=== PATIENT | male | born 1995 | race African-American/Black ===

== ENCOUNTER 2019-04-26 05:30 | Emergency (ER) | payer BC ==
[~2019-04-26] VITALS: Ht 172.7 cm; Wt 74.8 kg
[~2019-04-26 05:30] MED LIST: NKM
--- NOTE | 2019-04-26 05:41 | Emergency Room Report ---
History of Present Illness General Chief Complaint: Chest Pain Present Illness [facility] 24-year-old male presents with chest ache prior to arrival, patient states he smoked some marijuana, he felt lightheaded in bed, no nausea no vomiting, no shortness of breath, he states now his left shoulder is achy, currently has no chest pain, he describes the achiness in the muscles as mild, no aggravating or alleviating factors, occurred prior to arrival after smoking marijuana. Allergies: Coded Allergies: No Known Allergies (Unverified , 04/26/19) Patient History Past Medical History: see triage record Social History: Reports: drug use - Marijuana Review of Systems Constitutional: Denies: chills, fever Eye: Denies: blurred vision, double vision ENT: Denies: throat pain, nasal discharge Respiratory: Denies: cough, shortness of breath Cardiovascular: Reports: chest pain; Denies: palpitations Gastrointestinal: Denies: abdominal pain, diarrhea, nausea, vomiting Genitourinary: Denies: dysuria, pain Musculoskeletal: Reports: muscle pain; Denies: back pain Skin: Denies: rash, lesions Neurological: Denies: headache, focal weakness Hematologic/Lymphatic: Denies: easy bleeding, easy bruising All Other Systems: negative except mentioned in HPI Physical Exam Sp02 EP Interpretation: reviewed, normal General Appearance: well appearing, no apparent distress, alert Head: normocephalic, atraumatic Eyes: bilateral eye PERRL, bilateral eye EOMI ENT: uvula midline, moist mucus membranes Neck: supple, thyroid normal, supple/symm/no masses Respiratory: lungs clear, no respiratory distress, no retraction, no accessory muscle use Cardiovascular #1: normal peripheral pulses, regular rate, rhythm, no edema, no gallop, no murmur Gastrointestinal: non tender, soft, no guarding, no rebound Musculoskeletal: normal inspection Neurologic: alert, oriented x3 Psychiatric: mood/affect normal Skin: no rash, warm/dry Medical Decision Making Diagnostic Impression: Primary Impression: Atypical chest pain Additional Impressions: Side effect of drug Asthma attack ER Course No evidence of ACS, pulmonary embolism, pneumothorax, pneumonia. Historically not abrupt in onset, tearing or ripping, pulses symmetric, no evidence of aortic dissection. Patient with atypical chest pain after smoking marijuana, and lightheadedness, patient most likely had an adverse drug reaction, patient with atypical chest pain, has since resolved, chest x-ray negative, EKG negative, low suspicion for emergent pathology, disposition home with return precautions, return precautions discussed EKG Diagnostic Results EKG Time: 05:44 EP Interpretation: sinus bradycardia, rate 59, QTc 376, no acute ST elevations , normal axis Rate: bradycardiac Rhythm: other - Sinus bradycardia ST Segments: no acute changes Chest X-Ray Diagnostic Results Chest X-Ray Diagnostic Results : Chest X-Ray Ordered: Yes # of Views/Limited/Complete: 1 View Indication: Chest Pain EP Interpretation: Yes Interpretation: no acute cardiopulmonary disease Impression: No acute disease Electronically Signed by: Pedro Pablo Wright MD Disposition: HOME, SELF-CARE Condition: Improved Scripts Naproxen* (NAPROSYN*) 250 Mg Tablet 250 MG ORAL BID PRN for For Pain, #20 TAB 0 Refills Prov: Pedro Pablo Wright MD 04/26/19 Referrals: [facility] Patient Instructions: Asthma Attack Prevention, Asthma, Adult, [id number], Nonspecific Chest Pain Additional Instructions: The patient was provided with discharge instructions, notified to follow-up with a primary care doctor and or specialist in the next 24-48 hours, and to return to the ED if they have worsening of their symptoms. Please note that this report is being documented using Blackberry technology. This can lead to erroneous entry secondary to incorrect interpretation by the dictating instrument. Pedro Pablo Wright MD Apr 26, 2019 05:41
[2019-04-26] MEDS ORDERED: NAPROXEN250 MG ORAL (05:44)
[2019-04-26] MEDS ORDERED: Ketorolac 30mg Inj IV ONE (05:45)
[2019-04-26] MEDS ORDERED: Ketorolac 60mg Inj IM ONE (05:45)
[2019-04-26] MEDS ORDERED: Acetaminophen 500mg (ES) tab ORAL ONE (05:45)
[2019-04-26 05:49] VITALS: BP 121/77
--- NOTE | 2019-04-26 05:53 | NUR ---
ED Nurse Note: Patient walked in to ER c/o CP. Stated that smoked marijuana. AAO x4, VSS at this time, skin is warm to touch.
[2019-04-26 06:12] VITALS: BP 121/77
--- NOTE | 2019-04-26 06:12 | NUR ---
ED Nurse Note: Pt cleared by health care Provider for discharge. DC instructions/prescription was given and explained to pt and verbalized understanding of teachings. All medical deviecs such as ID band removed. Pt is AAO x4, ambulatory and left with all personal belongings.
--- NOTE | 2019-04-26 10:12 | Diagnostic Imaging Report ---
Indication: Chest pain Comparison: None A single view chest radiograph was obtained. Findings: Cardiomediastinal appearance is within normal limits for age. The lungs are clear. Pulmonary vascularity is appropriate. The diaphragmatic contour is smooth and costophrenic angles are sharp. No pleural effusions are identified. The bones are unremarkable. Impression: No acute findings
== END 2019-04-26 06:13 | disposition home or self-care (01) ==
LOC: EMR 05:45
DX: R07.89 Other chest pain (principal); T40.7X5A Adverse effect of cannabis (derivatives), initial encounter; J45.901 Unspecified asthma with (acute) exacerbation; Y92.9 Unspecified place or not applicable
CPT/HCPCS: 71045; 93005; 96372; 99283

== ENCOUNTER 2019-10-25 01:56 | Emergency (ER) | payer BC ==
[~2019-10-25] VITALS: Ht 170.2 cm; Wt 59.0 kg
[~2019-10-25 01:56] MED LIST changes: +NAPROXEN250 MG ORAL
[2019-10-25 02:15] VITALS: BP 119/82
--- NOTE | 2019-10-25 02:15 | NUR ---
ED Nurse Note: Recieved pt from home, here with c/o mnid chest pain x 3 days at 8/10, denies injury or any cardiac history, denies sob or labored breathing, pt immediately assisted to gowning and ekg done, pt also placed on cardiac monitoring, will continue to closely monitor and resume care as ordered.
--- NOTE | 2019-10-25 02:18 | Emergency Room Report ---
History of Present Illness General Chief Complaint: Chest Pain Source: Patient Present Illness HPI Patient presents with right-sided chest pain. Pleuritic and positional. No fevers or chills. He rates the pain 8/10. It is sharp and aching. It radiates around the side of his chest. He has not taken any medication. No cough. Tonight he started to feel dizzy and had palpitations. The pain seemed to get better during that time. Risk factors for cardiac disease: Smoking. No sore throat, nausea, vomiting, diarrhea, dysuria, abdominal pain, shortness of breath, joint pain, rashes, anxiety, visual changes, headache. Allergies: Coded Allergies: No Known Allergies (Unverified , 04/26/19) Patient History Past Medical History: see triage record Social History: Reports: smoking; Denies: alcohol use, drug use Reviewed Nursing Documentation: PMH: Agreed; PSxH: Agreed Nursing Documentation-PMH Hx Asthma: Yes Review of Systems All Other Systems: negative except mentioned in HPI Physical Exam Vital Signs Date Time Temp Pulse Resp B/P (MAP) Pulse Ox O2 Delivery O2 Flow Rate FiO2 10/25/19 02:03 97.9 81 20 119/82 (94) 98 Room Air Sp02 EP Interpretation: reviewed, normal General Appearance: well appearing, no apparent distress, GCS 15 Head: normocephalic Eyes: bilateral eye normal inspection ENT: moist mucus membranes Neck: supple Respiratory: lungs clear, normal breath sounds, other - Chest wall tenderness which re-creates pain. Cardiovascular #1: regular rate, rhythm, no edema Cardiovascular #2: 2+ radial (R) Gastrointestinal: normal inspection, normal bowel sounds, non tender, no mass, non-distended, scaphoid Musculoskeletal: back normal, normal range of motion, no calf tenderness, gait/ station normal Neurologic: alert, oriented x3, grossly normal Psychiatric: mood/affect normal Skin: no rash, warm/dry Medical Decision Making Diagnostic Impression: Primary Impression: Chest wall pain Additional Impression: Hyperventilation ER Course Patient presents with pleuritic right-sided chest pain and an episode of dizziness tonight. Differential includes pericarditis, pleurisy, pneumothorax, chest wall pain, pulmonary embolus, costochondritis amongst others. Cardiac risk factors are quite low. Evaluation with EKG and chest x-ray. The patient is not febrile and other labs are not indicated at this time. Patient was treated with Toradol and aspirin. EKG with J-point elevation. Chest x-ray normal. Patient improved with treatment. Discussed most likely etiology of chest pain. Discussed the need for follow-up. Patient stable for outpatient observation and treatment. EKG Diagnostic Results Rate: normal Rhythm: NSR ST Segments: no acute changes - J-point elevation Rhythm Strip Diag. Results EP Interpretation: yes Rhythm: NSR, no PVC's, no ectopy Chest X-Ray Diagnostic Results Chest X-Ray Diagnostic Results : Chest X-Ray Ordered: Yes # of Views/Limited/Complete: 1 View Indication: Chest Pain EP Interpretation: Yes Interpretation: no consolidation, no effusion, no pneumothorax Impression: No acute disease Electronically Signed by: Electronically signed by Isidro Wilkes MD Last Vital Signs Date Time Temp Pulse Resp B/P (MAP) Pulse Ox O2 Delivery O2 Flow Rate FiO2 10/25/19 05:00 98.4 71 16 122/78 100 Room Air Status: improved Disposition: HOME, SELF-CARE Condition: Improved Scripts Hydrocodone Bit/Acetaminophen 5-325* (NORCO 5-325*) 1 Each Tablet 1 TAB ORAL Q6H PRN for For Pain, #8 TAB 0 Refills Prov: Isidro Wilkes MD 10/25/19 Ibuprofen* (MOTRIN*) 600 Mg Tablet 600 MG ORAL Q6H PRN for For Pain, #16 TAB Prov: Isidro Wilkes MD 10/25/19 Isidro Wilkes MD Oct 25, 2019 02:18
[2019-10-25] MEDS ORDERED: Aspirin Baby 81mg ORAL ONE (02:30)
[2019-10-25 03:30] VITALS: BP 128/73
[2019-10-25 04:30] VITALS: BP 122/78
--- NOTE | 2019-10-25 04:30 | NUR ---
ED Nurse Note: Pt resting quietly, sleeping, no changes, or sob or distress noted, NSR on monitoring, will continue to closely monitor.
[2019-10-25] MEDS ORDERED: NORCO 5-325 TA1 EACH ORAL (04:43)
[2019-10-25] MEDS ORDERED: IBUPROFEN600 MG ORAL (04:43)
[2019-10-25] MEDS ORDERED: HYDROcodone/Acetamin 5/325 tab ORAL ONE (04:45)
[2019-10-25 05:00] VITALS: BP 122/78
--- NOTE | 2019-10-25 05:05 | NUR ---
ER DISCHARGE NOTE: Patient is cleared to be discharged per ERMD, pt is aox4, on room air, with stable vital signs. pt was given dc and prescription instructions, pt was able to verbalize understanding, pt id band removed without complications. pt is able to ambulate with steady gait. pt took all belongings.
--- NOTE | 2019-10-25 09:54 | Diagnostic Imaging Report ---
. Indication: Chest pain Technique: One view of the chest Comparison: 04/26/2019 Findings: Lungs and pleural spaces are clear. Heart size is normal. No significant interim change Impression: No acute process
== END 2019-10-25 05:05 | disposition home or self-care (01) ==
LOC: EMR 02:17
DX: R07.9 Chest pain, unspecified (principal); R06.4 Hyperventilation; F17.200 Nicotine dependence, unspecified, uncomplicated
CPT/HCPCS: 71045; 93005; 99283